=== PATIENT | male | born 1960 | race Caucasian/White ===

== ENCOUNTER → 2021-04-21 08:33 | Outpatient (BNV) | payer OTHER, SELFPAY | PROVIDERS: PCP Internal Medicine Endocrinology, Diabetes & Metabolism; Visit Provider Internal Medicine Medical Oncology | DX: D75.1 Secondary polycythemia (principal) | CPT/HCPCS: 99213; 99214 ==

== ENCOUNTER 2021-04-27 15:14 | Outpatient (REF) | payer OTHER, SELFPAY | END 2021-04-27 15:15 | disposition home or self-care (01) | LOC: HO.BBR 15:14 | PROVIDERS: Visit Provider Internal Medicine Medical Oncology | DX: D75.1 Secondary polycythemia (principal) | CPT/HCPCS: 85014; 85018; 99195 ==

== ENCOUNTER 2021-05-25 13:45 | Outpatient (REF) | payer OTHER, SELFPAY | END 2021-05-25 13:46 | disposition home or self-care (01) | LOC: HO.BBR 13:45 | PROVIDERS: Visit Provider Internal Medicine Medical Oncology | DX: D75.1 Secondary polycythemia (principal) | CPT/HCPCS: 85014; 85018; 99195 ==

== ENCOUNTER 2021-06-26 15:29 | Outpatient (REF) | payer OTHER, SELFPAY | END 2021-06-26 15:30 | disposition home or self-care (01) | LOC: HO.BBR 15:29 | PROVIDERS: Visit Provider Internal Medicine Medical Oncology | DX: D75.1 Secondary polycythemia (principal) | CPT/HCPCS: 85018; 99195 ==

== ENCOUNTER → 2021-07-07 14:50 | Outpatient (BNVA) | payer OTHER, SELFPAY | PROVIDERS: PCP Internal Medicine Endocrinology, Diabetes & Metabolism; Visit Provider Nurse Practitioner Family | DX: I10 Essential (primary) hypertension (principal); G47.30 Sleep apnea, unspecified; D75.1 Secondary polycythemia; Z82.49 Family history of ischemic heart disease and other diseases of the circulatory system | CPT/HCPCS: 93005; 99212 ==

== ENCOUNTER 2021-07-31 15:19 | Outpatient (REF) | payer OTHER, SELFPAY | END 2021-07-31 15:20 | disposition home or self-care (01) | LOC: HO.BBR 15:19 | PROVIDERS: Visit Provider Internal Medicine Medical Oncology | DX: D75.1 Secondary polycythemia (principal) | CPT/HCPCS: 85014; 85018; 99195 ==

== ENCOUNTER 2021-08-31 15:16 | Outpatient (REF) | payer OTHER, SELFPAY | END 2021-08-31 15:17 | disposition home or self-care (01) | LOC: HO.BBR 15:16 | PROVIDERS: Visit Provider Internal Medicine Medical Oncology | DX: D75.1 Secondary polycythemia (principal) | CPT/HCPCS: 85018; 99195 ==

== ENCOUNTER 2021-10-12 15:08 | Outpatient (REF) | payer OTHER, SELFPAY | END 2021-10-12 15:09 | disposition home or self-care (01) | LOC: HO.BBR 15:08 | PROVIDERS: Visit Provider Internal Medicine Medical Oncology | DX: D75.1 Secondary polycythemia (principal) | CPT/HCPCS: 85014; 85018; 99195 ==

== ENCOUNTER 2021-11-19 15:22 | Outpatient (REF) | payer OTHER, SELFPAY | END 2021-11-19 15:23 | disposition home or self-care (01) | LOC: HO.BBR 15:22 | PROVIDERS: Visit Provider Internal Medicine Medical Oncology | DX: D75.1 Secondary polycythemia (principal) | CPT/HCPCS: 85018; 99195 ==

== ENCOUNTER 2022-02-19 15:05 | Outpatient (REF) | payer OTHER, SELFPAY | END 2022-02-19 15:06 | disposition home or self-care (01) | LOC: HO.BBR 15:05 | PROVIDERS: Visit Provider Internal Medicine Medical Oncology | DX: D75.1 Secondary polycythemia (principal) | CPT/HCPCS: 85014; 85018; 99195 ==

== ENCOUNTER 2022-04-23 15:08 | Outpatient (REF) | payer OTHER, SELFPAY | END 2022-04-23 15:09 | disposition home or self-care (01) | LOC: HO.BBR 15:08 | PROVIDERS: Visit Provider Internal Medicine Medical Oncology | DX: D75.1 Secondary polycythemia (principal) | CPT/HCPCS: 85018; 99195 ==

== ENCOUNTER 2022-06-25 13:59 | Outpatient (REF) | payer OTHER, SELFPAY | END 2022-06-25 14:00 | disposition home or self-care (01) | LOC: HO.BBR 13:59 | PROVIDERS: Visit Provider Internal Medicine Medical Oncology | DX: D75.1 Secondary polycythemia (principal) | CPT/HCPCS: 85018; 99195 ==

== ENCOUNTER 2022-08-31 14:52 | Outpatient (REF) | payer OTHER, SELFPAY | END 2022-08-31 14:53 | disposition home or self-care (01) | LOC: HO.BBR 14:52 | PROVIDERS: Visit Provider Internal Medicine Medical Oncology | DX: D75.1 Secondary polycythemia (principal) | CPT/HCPCS: 85018; 99195 ==

== ENCOUNTER 2022-11-02 15:21 | Outpatient (REF) | payer OTHER, SELFPAY | END 2022-11-02 15:22 | disposition home or self-care (01) | LOC: HO.BBR 15:21 | PROVIDERS: PCP Nurse Practitioner Family; Visit Provider Internal Medicine Medical Oncology | DX: Z13.89 Encounter for screening for other disorder (principal) ==

== ENCOUNTER 2023-01-05 15:18 | Outpatient (REF) | payer OTHER, SELFPAY | END 2023-01-05 15:19 | disposition home or self-care (01) | LOC: HO.BBR 15:18 | PROVIDERS: Visit Provider Internal Medicine Medical Oncology | DX: D75.1 Secondary polycythemia (principal) | CPT/HCPCS: 85014; 85018; 99195 ==

== ENCOUNTER 2023-03-10 15:13 | Outpatient (REF) | payer OTHER, SELFPAY | END 2023-03-10 15:14 | disposition home or self-care (01) | LOC: HO.BBR 15:13 | PROVIDERS: PCP Nurse Practitioner Family; Visit Provider Internal Medicine Medical Oncology | DX: D75.1 Secondary polycythemia (principal) | CPT/HCPCS: 85014; 85018; 99195 ==

== ENCOUNTER 2023-05-30 15:18 | Outpatient (REF) | payer OTHER, SELFPAY | END 2023-05-30 15:19 | disposition home or self-care (01) | LOC: HO.BBR 15:18 | PROVIDERS: PCP Nurse Practitioner Family; Visit Provider Internal Medicine Medical Oncology | DX: D75.1 Secondary polycythemia (principal) | CPT/HCPCS: 85018; 99195 ==

== ENCOUNTER 2023-08-29 15:16 | Outpatient (REF) | payer OTHER, SELFPAY | END 2023-08-29 15:17 | disposition home or self-care (01) | LOC: HO.BBR 15:16 | PROVIDERS: PCP Nurse Practitioner Family; Visit Provider Internal Medicine Medical Oncology | DX: D75.1 Secondary polycythemia (principal) | CPT/HCPCS: 85018; 99195 ==

== ENCOUNTER 2023-10-24 15:06 | Outpatient (REF) | payer OTHER, SELFPAY ==
[2023-10-24 15:23] LABS: MANUAL DIFF FLAG NO
[2023-10-24 15:25] LABS: Basophils Absolute Auto 0.1 X10*3/uL (0.0-0.2); Basophils Percent Auto 0.7 % (0-2); Eosinophils Absolute Auto 0.1 X10*3/uL (0.0-0.4); Eosinophils Percent Auto 1.5 % (0-4); Hematocrit 41.6 % (42.0-52.0); Hemoglobin 13.7 g/dl (14.0-18.0); Imm Gran Abs Auto 0.02 X10*3/uL (0.00-0.03); Imm Gran Pct Auto 0.2 % (0.0-0.4); Lymphocytes Absolute Auto 1.4 X10*3/uL (1.2-4.9); Lymphocytes Percent Auto 15.7 % (20-40); Mean Corpuscular HGB Conc 32.9 g/dl (31.0-36.0); Mean Corpuscular Volume 81.9 fL (80.0-98.0); Mean Platelet Volume 9.6 fL (9.4-12.4); Monocytes Absolute Auto 0.8 X10*3/uL (0.1-1.2); Monocytes Percent Auto 8.6 % (2-11); Neutrophils Absolute Auto 6.4 x10*3/uL (2.0-8.3); Neutrophils Percent Auto 73.3 % (45-73); Platelet Count 183 X10*3/uL (160-400); Red Blood Count 5.08 X10*6/uL (4.60-5.80); Red Cell Distribution Width 15.4 % (11.0-16.0); White Blood Count 8.7 X10*3/uL (4.8-10.8)
[2023-10-24 15:38] LABS: Alanine Aminotransferase 21 U/L (0-40); Albumin Level 4.3 g/dL (3.5-5.0); Alkaline Phosphatase 62 U/L (39-117); Anion Gap 13 (12-20); Aspartate Amino Transferase 27 U/L (5-37); Bilirubin Total 0.5 mg/dL (0.0-1.0); Blood Urea Nitrogen 25 mg/dL (9-16); Calcium 10.1 mg/dL (8.4-10.2); Carbon Dioxide 28 mmol/L (22-29); Chloride 103 mmol/L (96-108); Estimated Glomerular Filt Rate 55; Glucose Random 99 mg/dL (60-115); Potassium 4.4 mmol/L (3.3-5.1); Sodium 140 mmol/L (135-145); Total Protein 7.6 g/dL (6.5-8.0)
== END 2023-10-24 15:07 | disposition home or self-care (01) ==
LOC: HO.LAB 15:06
PROVIDERS: PCP Nurse Practitioner Family; Visit Provider Internal Medicine Medical Oncology
DX: D75.1 Secondary polycythemia (principal)
CPT/HCPCS: 36415; 80053; 85025

== ENCOUNTER 2023-12-05 15:15 | Outpatient (REF) | payer OTHER, SELFPAY | END 2023-12-05 15:16 | disposition home or self-care (01) | LOC: HO.BBR 15:15 | PROVIDERS: PCP Nurse Practitioner Family; Visit Provider Internal Medicine Medical Oncology | DX: D75.1 Secondary polycythemia (principal) | CPT/HCPCS: 85014; 85018; 99195 ==

== ENCOUNTER 2024-03-06 09:48 | Outpatient (REF) | payer OTHER, SELFPAY | END 2024-03-06 09:49 | disposition home or self-care (01) | LOC: HO.BBR 09:48 | PROVIDERS: PCP Nurse Practitioner Family; Visit Provider Internal Medicine Medical Oncology | DX: D75.1 Secondary polycythemia (principal) | CPT/HCPCS: 85018; 99195 ==